=== PATIENT | male | born 1995 | race Hispanic/Latino ===

== ENCOUNTER → 2024-11-08 | Outpatient (CLI) | payer OTHER ==
--- NOTE | 2024-11-09 05:24 | HMCIMG ---
EXAM: CR Right Hand, 3 views. CLINICAL HISTORY: Pain. COMPARISON: None provided. FINDINGS: Tiny chip fracture arising from head of distal phalanx of thumb. The joint spaces are within normal limits. No arthritis. No joint erosion. The soft tissues are unremarkable. IMPRESSION: Tiny chip fracture arising from head of distal phalanx of thumb. /[place]
== END | disposition home or self-care (01) ==
LOC: LAB 10:33
PROVIDERS: ATTEND Physical Medicine & Rehabilitation
DX: S62.521A Displaced fracture of distal phalanx of right thumb, initial encounter for closed fracture (principal); S60.011A Contusion of right thumb without damage to nail, initial encounter; M79.644 Pain in right finger(s); W23.0XXA Caught, crushed, jammed, or pinched between moving objects, initial encounter; Y93.89 Activity, other specified; Y92.89 Other specified places as the place of occurrence of the external cause; Y99.8 Other external cause status
CPT/HCPCS: 73130